=== PATIENT | male | born 1945 | race Caucasian/White ===

== ENCOUNTER 2019-01-19 10:55 | Emergency (ER) | payer MEDICARE, OTHER ==
[~2019-01-19] VITALS: Ht 170.2 cm; Wt 70.0 kg
[~2019-01-19 10:55] MED LIST: ALBU18HF INHALATION; ASPI81TA52 PO; BUSP10TA2 PO; CARV25TA79 PO; CELE200C PO; CRES20 PO; FLUT1BLS3 IH; ICOS1CAP PO; SACU1TAB PO; SERT50TA PO; WARF6TAB48 PO
[2019-01-19 11:02] VITALS: Ht 170.2 cm; Wt 70.0 kg
[2019-01-19 13:42] VITALS: BP 98/50; PULSE 88; RESP 18
== END 2019-01-19 13:56 | disposition home or self-care (01) ==
LOC: E/R 10:55
DX: R55 Syncope and collapse (principal); I10 Essential (primary) hypertension; Z87.891 Personal history of nicotine dependence; Z79.82 Long term (current) use of aspirin; Z79.01 Long term (current) use of anticoagulants
CPT/HCPCS: 71045; 80048; 82962; 84484; 85025; 93005